=== PATIENT | female | born 1940 | race Caucasian/White ===

== ENCOUNTER 2022-03-30 10:13 | Outpatient (CLI) | payer MEDICARE, OTHER ==
--- NOTE | 2022-04-02 10:26 | Mammography Report ---
BILATERAL DIGITAL SCREENING MAMMOGRAM 3D/2D: 03/30/2022 CLINICAL: Routine screening. Comparison is made to exams dated: 09/23/2020 mammogram, 09/19/2018 mammogram, 09/18/2017 mammogram, 08/24 mammogram, 09/15/2015 mammogram, and 09/10/2014 mammogram - [facility]. There are scattered areas of fibroglandular density in both breasts (category b / 25%-50% glandular t issue). No significant masses, calcifications, or other findings are seen in either breast. There has been no significant interval change. IMPRESSION: NEGATIVE There is no mammographic evidence of malignancy. A 1 year screening mammogram is recommended. Based on the Tyrer Cuzick model (a risk assessment model) the patients lifetime risk is 0.5% and her 10 year risk is 0.0%. According to the ACR, ACS, and NCCN guidelines, an annual breast MRI exam stevo g with mammogram is recommended if the patients lifetime risk is 20% or greater. This exam was interpreted at Station ID: [id number]. NOTE: For mammograms, a report in lay terms will be sent to the patient. Approximately 15% of breast malignancies will not be visualized mammographically. In the management of a palpable breast mass, a negative mammogram must not discourage biopsy of a clinically suspicious lesion. Electronically Signed By: Yany pagan/aure:03/30/2022 11:34:12 ACR BI-RADS Category 1: Negative 3341F PARENCHYMAL PATTERN: (A) - The breast(s) demonstrate(s) scattered fibroglandular densities. BI-RADS CATEGORY: (1) - 1 RECOMMENDATION: (ANNUAL) - Recommend routine annual screening mammography. [id number] 1 year screening LATERALITY: (B)
== END 2022-03-30 10:14 | disposition home or self-care (01) ==
LOC: DI 10:13
DX: Z12.31 Encounter for screening mammogram for malignant neoplasm of breast (principal)

== ENCOUNTER 2022-03-30 10:46 | Outpatient (CLI) | payer MEDICARE, OTHER ==
[2022-03-30 11:20] LABS: ALBUMIN/GLOBULIN RATIO 1.3 (1.0-2.2); ALKALINE PHOSPHATASE 70 IU/L (42-121); ALT ALANINE AMINOTRANSFERASE 16 IU/L (10-60); AST ASPARTATE AMINOTRANSFERASE 17 IU/L (10-42); BILIRUBIN,TOTAL 0.8 mg/dL (0.2-1.0); BUN - BLOOD UREA NITROGEN 18 mg/dL (6-20); CALCIUM 9.2 mg/dL (8.5-10.3); CARBON DIOXIDE - CO2 27 mmol/L (21-32); CHLORIDE 105 mmol/L (101-111); CHOL/HDL RATIO 2.6 (<4.4); CHOLESTEROL 242 mg/dL; CREATININE 0.7 mg/dL (0.4-1.0); GFR - MDRD 80 (>89); GLUCOSE 100 mg/dL (70-100); HDL CHOLESTEROL 92 mg/dL; LDL CHOLESTEROL,CALCULATED 139 mg/dL; LDL/HDL RATIO 1.5 (<4.4); POTASSIUM 4.3 mmol/L (3.5-5.0); SODIUM 138 mmol/L (135-145); TRIGLYCERIDES 56 mg/dL; VLDL CHOLESTEROL 11 mg/dL
== END 2022-03-30 10:47 | disposition home or self-care (01) ==
LOC: LAB 10:46
DX: Z00.00 Encounter for general adult medical examination without abnormal findings (principal); E78.00 Pure hypercholesterolemia, unspecified
CPT/HCPCS: 36415; 80053; 80061; 83721

== ENCOUNTER 2022-08-13 08:29 | Outpatient (CLI) | payer MEDICARE, OTHER ==
[2022-08-13 14:28] LABS: BASOPHILS % (AUTO) 0.5 %; EOSINOPHILS # (AUTO) 0.3 10^3/uL (0.0-0.7); EOSINOPHILS % (AUTO) 4.2 %; HCT - HEMATOCRIT 40.8 % (37.0-47.0); HGB - HEMOGLOBIN 12.8 g/dL (12.0-16.0); LYMPHOCYTES # (AUTO) 2.3 10^3/uL (1.5-3.5); LYMPHOCYTES % (AUTO) 38.7 %; MEAN CORPUSCULAR HEMOGLOBIN 30.3 pg (27.0-31.0); MEAN CORPUSCULAR HGB CONC 31.4 g/dL (32.0-36.0); MEAN CORPUSCULAR VOLUME 96.7 fL (81.0-99.0); MONOCYTES # (AUTO) 0.5 10^3/uL (0.0-1.0); MONOCYTES % (AUTO) 8.2 %; NEUTROPHILS # (AUTO) 2.9 10^3/uL (1.5-6.6); NEUTROPHILS % (AUTO) 48.2 %; PLT - PLATELET COUNT 310 10^3/uL (130-450); RED BLOOD COUNT 4.22 10^6/uL (4.20-5.40); RED CELL DISTRIBUTION WIDTH 13.7 % (12.0-15.0)
[2022-08-13 14:49] LABS: ALBUMIN 3.9 g/dL (3.2-5.5); ALBUMIN/GLOBULIN RATIO 1.4 (1.0-2.2); ALKALINE PHOSPHATASE 68 IU/L (42-121); ALT ALANINE AMINOTRANSFERASE 16 IU/L (10-60); AST ASPARTATE AMINOTRANSFERASE 16 IU/L (10-42); BILIRUBIN,TOTAL 0.8 mg/dL (0.2-1.0); BUN - BLOOD UREA NITROGEN 21 mg/dL (6-20); CALCIUM 9.3 mg/dL (8.5-10.3); CARBON DIOXIDE - CO2 30 mmol/L (21-32); CHLORIDE 112 mmol/L (101-111); CHOL/HDL RATIO 2.5 (<4.4); CHOLESTEROL 227 mg/dL; CREATININE 0.6 mg/dL (0.4-1.0); GFR - MDRD 95 (>89); GLUCOSE 98 mg/dL (70-100); HDL CHOLESTEROL 92 mg/dL; LDL CHOLESTEROL,CALCULATED 123 mg/dL; LDL/HDL RATIO 1.3 (<4.4); POTASSIUM 4.2 mmol/L (3.5-5.0); SODIUM 143 mmol/L (135-145); TOTAL PROTEIN 6.6 g/dL (6.7-8.2); TRIGLYCERIDES 62 mg/dL; VLDL CHOLESTEROL 12 mg/dL
== END 2022-08-13 08:30 | disposition home or self-care (01) ==
LOC: LAB.S 08:29
PROVIDERS: ATTEND Nurse Practitioner Acute Care
DX: Z13.228 Encounter for screening for other metabolic disorders (principal); Z13.220 Encounter for screening for lipoid disorders; Z13.29 Encounter for screening for other suspected endocrine disorder; Z13.0 Encounter for screening for diseases of the blood and blood-forming organs and certain disorders involving the immune mechanism
CPT/HCPCS: 36415; 80053; 80061; 83721; 84443; 85025

== ENCOUNTER 2022-11-06 14:57 | Outpatient (CLI) | payer MEDICARE, OTHER ==
--- NOTE | 2022-11-06 16:44 | XRAY Report ---
PROCEDURE: Lumbar Spine Complete INDICATIONS: GLUTEAL PAIN TECHNIQUE: 4 views of the lumbar spine were acquired. COMPARISON: None. FINDINGS: Bones: 5 [id number] vertebrae are present. Grade 1 anterolisthesis of L3 on L4. Moderate to sev ere, disc height loss at all levels. Diffuse facet arthrosis. Slight leftward curvature, centered at L4. Soft tissues: Overlying bowel gas pattern is normal. No suspicious soft tissue calcifications. Bi lateral hip arthroplasty. 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 Reviewed by: Karel Hyatt on 11/06/2022 4:43 PM PDT Approved by: Karel Hyatt on 11/06/2022 4:43 PM PDT Station ID: [id number]
== END 2022-11-06 14:58 | disposition home or self-care (01) ==
LOC: DI.S 14:57
PROVIDERS: ATTEND Nurse Practitioner Acute Care
DX: M79.18 Myalgia, other site (principal); M47.816 Spondylosis without myelopathy or radiculopathy, lumbar region; M51.36 Other intervertebral disc degeneration, lumbar region

== ENCOUNTER 2023-05-10 07:00 | Outpatient (CLI) | payer MEDICARE, OTHER ==
--- NOTE | 2023-05-11 13:02 | XRAY Report ---
PROCEDURE: Hips w/Pelvis 2-3V BL INDICATIONS: BILATERAL HIP PAIN TECHNIQUE: 3 view(s) of the hip were acquired. COMPARISON: FINDINGS: Bones: No fractures or dislocations. No suspicious bony lesions. The visualized pelvic ring appear s intact. Soft tissues: No suspicious soft tissue calcifications or masses. IMPRESSION: No acute bony abnormality. If there remains a high clinical concern for fracture, consider cross-sect ional imaging now. If pain persists, consider repeat x-ray in 10-14 days or cross-sectional imaging. Reviewed by: Yany Alonso MD on 05/11/2023 1:01 PM PST Approved by: Yany Alonso MD on 05/11/2023 1:01 PM PST Station ID: [id number]
== END 2023-05-10 23:59 | disposition home or self-care (01) ==
LOC: DI.S 07:00
PROVIDERS: ATTEND Internal Medicine
DX: M25.552 Pain in left hip (principal); M25.551 Pain in right hip

== ENCOUNTER 2023-05-21 13:51 | Outpatient (CLI) | payer MEDICARE, OTHER ==
--- NOTE | 2023-05-21 19:20 | MRI Report ---
PROCEDURE: MRI lumbar spine without contrast INDICATIONS: DJD LUMBAR SPINE TECHNIQUE: Multiplanar multisequential MRI images of the lumbar spine were obtained without intraven ous contrast. COMPARISON: None. FINDINGS: Alignment and Curvature: Grade 1 anterior spinal listhesis L3-4 Bone Marrow: Marrow is of normal overall signal. No acute vertebral body compression fractures. No sacral fractures. Spinal Cord: Conus medullaris terminates at the L1 level. Visualized cord demonstrates normal signa l and size. Paraspinal Soft Tissues: Unremarkable perivertebral soft tissues. T12-L1: Disc space narrowing posterior disc bulge results in mild central stenosis appear no foramin al stenosis. L1-L2: Disc space narrowing with posterior disc bulge results in mild central stenosis. Hypertroph ic facet joints contribute to moderate bilateral foraminal stenosis L2-L3: Disc space narrowing and hypertrophic facet joints results in mild central and moderate jose l ateral foraminal stenosis greater on the left L3-L4: Disc space narrowing and posterior disc bulge with hypertrophic facet joints and ligamentum flavum laxity combined results in severe central stenosis. Moderate bilateral foraminal stenosis L4-L5: Disc space narrowing and hypertrophic facet joints combine to result in moderate to severe c entral stenosis. Moderate right and mild left foraminal stenosis L5-S1: Disc space narrowing posterior disc bulge. No central stenosis. No foraminal stenosis. IMPRESSION: Multilevel degenerative disc disease and arthropathy results in varying degrees of central and forami nal stenosis including severe central stenosis L3-4 Reviewed by: Eduardo Pérez MD on 05/21/2023 6:18 PM [place] Approved by: Eduardo Pérez MD on 05/21/2023 6:18 PM [place] Station ID: [id number]
== END 2023-05-21 13:52 | disposition home or self-care (01) ==
LOC: DI 13:51
PROVIDERS: ATTEND Internal Medicine
DX: M51.36 Other intervertebral disc degeneration, lumbar region (principal); M48.061 Spinal stenosis, lumbar region without neurogenic claudication; M47.816 Spondylosis without myelopathy or radiculopathy, lumbar region; M51.37 Other intervertebral disc degeneration, lumbosacral region